=== PATIENT | male | born 1985 | race American Indian/Alaskan Native ===

== ENCOUNTER 2021-10-01 13:42 | Emergency (ER) | payer SELFPAY ==
[2021-10-01 13:45] VITALS: BP 158/93
--- NOTE | 2021-10-01 15:20 | Emergency Department Report ---
- General Chief Complaint: Fever Stated Complaint: COMMON COLD Time Seen by Provider: 10/01/21 14:41 Source: patient Mode of arrival: Ambulatory Limitations: No Limitations - History of Present Illness Initial Comments: 36-year-old male with a past medical history of leukemia, currently in remission x5 years presents to the ER today with URI symptoms. Patient states that the symptoms started about a week ago, he feels like his symptoms are getting little bit better but he still has the productive cough, chest pain with cough, sore throat with cough, slight rhinorrhea, nasal congestion and so he decided come in to get checked. States that he had subjective fever when the symptoms first started but this has since resolved. He has not gotten a COVID-19 test since his pain sick. He did not get the vaccine. He denies any known ill contacts or recent travel. He reports no GI or symptoms. He states that he takes a daily pill for his leukemia, he states that it suppose to keep him in remission but is not sure if its a chemo medication. He states that his been compliant with following up with his oncologist. MD Complaint: cough, rhinorrhea, nasal congestion -: week(s) - Related Data Previous Rx's Medication Instructions Recorded Last Taken Type Benzonatate [Tessalon Perles] 100 mg PO Q8HR #30 capsule 10/01/21 Unknown Rx Cetirizine HCl [Zyrtec 10mg tab] 10 mg PO DAILY #30 tablet 10/01/21 Unknown Rx ED Review of Systems ROS: Stated complaint: COMMON COLD Other details as noted in HPI Comment: All other systems reviewed and negative Constitutional: fever (initially when symptoms first started but has since resolved ) ENT: congestion, other (rhinorrhea ) Cardiovascular: chest pain (secondary to cough) Gastrointestinal: denies: abdominal pain, nausea, diarrhea, constipation, hematemesis, melena, hematochezia Genitourinary: denies: urgency, dysuria, frequency, hematuria, discharge, testicular pain, testicular mass Skin: denies: rash, lesions, change in color, change in hair/nails, pruritus Neurological: denies: headache, weakness, numbness, paresthesias, confusion, abnormal gait, vertigo Psychiatric: denies: anxiety, depression, auditory hallucinations, visual hallucinations, homicidal thoughts, suicidal thoughts Hematological/Lymphatic: denies: easy bleeding, easy bruising, swollen glands ED Past Medical Hx - Medications Home Medications: Home Medications Medication Instructions Recorded Confirmed Last Taken Type Benzonatate [Tessalon Perles] 100 mg PO Q8HR #30 capsule 10/01/21 Unknown Rx Cetirizine HCl [Zyrtec 10mg tab] 10 mg PO DAILY #30 tablet 10/01/21 Unknown Rx ED Physical Exam - General Limitations: No Limitations General appearance: alert, in no apparent distress - Head Head exam: Present: atraumatic, normocephalic, normal inspection - Eye Eye exam: Present: normal appearance, PERRL, EOMI Pupils: Present: normal accommodation - ENT ENT exam: Present: normal exam, mucous membranes moist, TM's normal bilaterally - Neck Neck exam: Present: normal inspection, full ROM. Absent: meningismus - Respiratory Respiratory exam: Present: normal lung sounds bilaterally. Absent: respiratory distress, wheezes, rales, rhonchi, stridor - Cardiovascular Cardiovascular Exam: Present: regular rate, normal rhythm, normal heart sounds - GI/Abdominal GI/Abdominal exam: Present: soft. Absent: guarding, rebound - Neurological Exam Neurological exam: Present: alert, oriented X3, CN II-XII intact, normal gait - Psychiatric Psychiatric exam: Present: normal affect, normal mood - Skin Skin exam: Present: intact ED Course Vital Signs 10/01/21 10/01/21 13:44 15:14 Temperature 98.0 F Pulse Rate 95 H Respiratory 16 Rate Blood Pressure 158/93 O2 Sat by Pulse 92 99 Oximetry ED Medical Decision Making - Radiology Data Radiology results: report reviewed Patient: JILLIAN GOEL MR#: [id number] : 1985 Acct:[id number] Age/Sex: 36 / M ADM Date: 10/01/21 Loc: ED Attending Dr: Ordering Physician: KRISTYN SEARS Date of Service: 10/01/21 Procedure(s): XR chest routine 2V Accession Number(s): [id number] cc: KRISTYN SEARS Fluoro Time In Minutes: CHEST 2 VIEWS INDICATION / CLINICAL INFORMATION: Cough for one week.. COMPARISON: None available. FINDINGS: SUPPORT DEVICES: None. HEART / MEDIASTINUM: The heart size and pulmonary vasculature are normal. LUNGS / PLEURA: There is minimal linear parenchymal opacity in the lingula. The lungs are otherwise clear. No pleural abnormality. No pneumothorax. ADDITIONAL FINDINGS: No significant additional findings. IMPRESSION: Minimal subsegmental atelectasis/scarring in the lingula. Signer Name: Cali Crews MD Signed: 10/01/2021 4:02 PM Workstation Name: [id number] Transcribed By: RT Dictated By: Cali Crews MD Electronically Authenticated By: Cali Crews MD Signed Date/Time: 10/01/211601 DD/ 00 TD/TT: - Medical Decision Making Chest x-ray shows nothing acute. Patient is not ill-appearing, he is not in any acute pain or respiratory distress. He is neurologically intact with a normal g ait. He appears well-hydrated. He is not toxic. He has no meningeal signs. Abdomen soft and nontender. No significant adventitious sounds on lung exam. Vital signs reviewed, he is oxygen was actually 99% on repeat was in the room with patient. His remaining vitals were stable. Additional work-up nor admission indicated at this time. Patient symptoms could be related to nonspecific viral illness, but I did recommend that he get a COVID-19 test as this could be a possibility to the cause of his symptoms. He will be given medication to help with symptoms. Patient expressed understanding and agree with plan. Patient was stable at time of discharge. Critical care attestation.: If time is entered above; I have spent that time in minutes in the direct care of this critically ill patient, excluding procedure time. ED Disposition Clinical Impression: URI with cough and congestion Disposition: HOME / SELF CARE / HOMELESS Is pt being admited?: No Does the pt Need Aspirin: No Condition: Stable Instructions: Upper Respiratory Infection, Adult, Dekh-br-Yoiq Additional Instructions: Your chest x-ray today was negative for anything acute. Symptoms likely related to a nonspecific viral illness. COVID-19 is a possibility and I do recommend that you get an outpatient COVID-19 test. Once your symptoms resolve completely also do recommend that you get a COVID-19 vaccine. In the meantime you can take the Tessalon Perles to help with any coughing, and take the Claritin or Zyrtec from [id number] to help with your URI symptoms. Continue to drink lots of fluids. Continue to follow-up with your oncologist and your PCP closely. Return to the ER if at any point your symptoms worsens. Prescriptions: Benzonatate [Tessalon Perles] 100 mg PO Q8HR #30 capsule Cetirizine HCl [Zyrtec 10mg tab] 10 mg PO DAILY #30 tablet Referrals: PRIMARY CARE, [Primary Care Provider] - 3-5 Days Forms: Work/School Release Form(ED) Time of Disposition: 16:41
--- NOTE | 2021-10-01 16:08 | XRay Report ---
CHEST 2 VIEWS INDICATION / CLINICAL INFORMATION: Cough for one week.. COMPARISON: None available. FINDINGS: SUPPORT DEVICES: None. HEART / MEDIASTINUM: The heart size and pulmonary vasculature are normal. LUNGS / PLEURA: There is minimal linear parenchymal opacity in the lingula. The lungs are otherwise c lear. No pleural abnormality. No pneumothorax. ADDITIONAL FINDINGS: No significant additional findings. IMPRESSION: Minimal subsegmental atelectasis/scarring in the lingula. Signer Name: Cali Crews MD Signed: 10/01/2021 4:02 PM Workstation Name: [id number]
== END 2021-10-01 16:48 | disposition home or self-care (01) ==
LOC: ED 13:42
DX: J06.9 Acute upper respiratory infection, unspecified (principal)
CPT/HCPCS: 71046; 99283

== ENCOUNTER 2021-10-05 12:31 | Emergency (ER) | payer SELFPAY ==
[2021-10-05 15:18] VITALS: BP 153/88
--- NOTE | 2021-10-05 15:33 | Emergency Department Report ---
Minor Respiratory - HPI Chief Complaint: Upper Respiratory Infection Stated Complaint: coughing Time Seen by Provider: 10/05/21 15:23 Duration: 5 Days Severity: mild Minor Respiratory: Yes Cough Other History: 36-year-old -[place] male who is nontoxic in no acute distress speaking in complete sentences presents to the emergency room for coughing. Patient was seen here on 10/01/2021 for URI symptoms. Patient is unvaccinated and he states he is waiting on his Covid test results. Patient reports that the Tessalon Perles and Zyrtec's he was prescribed not help. Patient denies any fever chills no nausea no vomiting. Patient has not tried any pslm-bzk-smisgnl medications. ED Review of Systems ROS: Stated complaint: coughing Other details as noted in HPI Comment: All other systems reviewed and negative ED Past Medical Hx - Past Medical History Previous Medical History?: No - Surgical History Past Surgical History?: No - Medications Home Medications: Home Medications Medication Instructions Recorded Confirmed Last Taken Type Benzonatate [Tessalon Perles] 100 mg PO Q8HR #30 capsule 10/01/21 Unknown Rx Cetirizine HCl [Zyrtec 10mg tab] 10 mg PO DAILY #30 tablet 10/01/21 Unknown Rx Minor Respiratory Exam - Exam General: Vital signs noted. No distress. Alert and acting appropriately. HEENT: Yes Moist Mucous Membranes, No Pharyngeal Erythema, No Pharyngeal Exudates, No Rhinorrhea, No Conjuctival Injection, No Frontal Tenderness, No Maxillary Tenderness Ear: Neither TM Bulge, Neither TM Erythema, Neither EAC Pain, Neither EAC Discharge Neck: Yes Supple, No Adenopathy Lungs: Yes Good Air Exchange, No Wheezes, No Ronchi, No Stridor, No Cough, No Labored Respirations, No Retractions, No Use of Accessory Muscles, No Other Abnormal Lung Sounds Heart: Yes Regular, No Murmur Abdomen: Yes Normal Bowel Sounds, No Tenderness, No Peritoneal Signs Skin: No Rash, No Edema Neurologic: Alert and oriented, no deficits. Musculoskeletal: Unremarkable. ED Course Vital Signs 10/05/21 15:14 Temperature 98.5 F Pulse Rate 86 Respiratory 16 Rate Blood Pressure 153/88 [Left] O2 Sat by Pulse 95 Oximetry ED Medical Decision Making - Medical Decision Making 36-year-old -[place] male who is nontoxic in no acute distress speaking in complete sentences presents to the emergency room for coughing. Patient was seen here on 10/01/2021 for URI symptoms. Patient is unvaccinated and he states he is waiting on his Covid test results. Patient reports that the Tessalon Perles and Zyrtec's he was prescribed not help. Patient denies any fever chills no nausea no vomiting. Patient has not tried any gtnj-lcv-lktsbeh medications. Patient has a stable lung exam not coughing throughout the whole visit. Is afebrile vital signs are stable no acute distress. Discussed with patient he can take rpgs-wbj-kvigktc Robitussin or Delsym for cough. Discussed with patient to follow-up in his Covid test and encouraged Covid vaccination. Critical care attestation.: If time is entered above; I have spent that time in minutes in the direct care of this critically ill patient, excluding procedure time. ED Disposition Clinical Impression: Suspected COVID-19 virus infection, Viral infection Disposition: HOME / SELF CARE / HOMELESS Is pt being admited?: No Does the pt Need Aspirin: No Condition: Stable Instructions: COVID-19 Frequently Asked Questions, Viral Respiratory Infection, Tzvw-Yn-Kmrx, COVID-19: How to Protect Yourself and Others - CDC, Prevent the Spread of COVID-19 if You Are Sick - CDC Additional Instructions: Your symptoms appear most consistent with a nonspecific viral syndrome. However, given this current pandemic, COVID-19 is in the differential of possibilities. Despite your previous negative COVID-19 test, I do recommend repeat outpatient Covid 19 testing. In the meantime, isolate/quarantine yourself and stay away from anyone who is elderly, immunocompromised or chronically ill. You can use ibuprofen every 6-8 hours and Tylenol every 4-8 hours, using the dosing on the back of the bottle, as needed for any fever or body aches. Return to the emergency department with any worsening of your symptoms, development of chest pain or shortness of breath, or with any acute distress. Referrals: your, Primary Care provider [Other] - 3-5 Days Your, primary care provider [Other] - 3-5 Days Forms: Work/School Release Form(ED) Time of Disposition: 15:39
== END 2021-10-05 16:13 | disposition home or self-care (01) ==
LOC: ED 12:31
DX: B34.9 Viral infection, unspecified (principal); Z20.822 Contact with and (suspected) exposure to COVID-19
CPT/HCPCS: 99282

== ENCOUNTER 2021-10-30 12:14 | Emergency (ER) | payer SELFPAY ==
[2021-10-30 12:44] VITALS: BP 187/108
--- NOTE | 2021-10-30 15:04 | Emergency Department Report ---
- General Chief Complaint: Chest Pain Stated Complaint: RIB AND BACK PAIN Source: patient Mode of arrival: Ambulatory Limitations: No Limitations - History of Present Illness Initial Comments: 36-year-old male presents to the ED with complaint of cough x2-week. Patient stated that he was tested positive for Covid 2 weeks ago and cough has never went away. Patient states the cough is causing rib and back pain. Patient denies taking any medication [id number]. Denies any shortness of breath ,chest pain ,or fever. Patient alert and oriented x4. No acute distress noted .no ill appearance noted. Patient has no known history. MD Complaint: cough Onset/Timin -: week(s) Quality: aching Improves With: nothing Worsens With: nothing Associated Symptoms: denies other symptoms Treatments Prior to Arrival: none - Related Data Previous Rx's Medication Instructions Recorded Last Taken Type Benzonatate [Tessalon Perles] 100 mg PO Q8HR #30 capsule 10/01/21 Unknown Rx Cetirizine HCl [Zyrtec 10mg tab] 10 mg PO DAILY #30 tablet 10/01/21 Unknown Rx Allergies Allergy/AdvReac Type Severity Reaction Status Date / Time No Known Allergies Allergy Verified 10/30/21 12:44 ED Review of Systems ROS: Stated complaint: RIB AND BACK PAIN Other details as noted in HPI Constitutional: denies: chills, fever Eyes: denies: eye pain, eye discharge, vision change ENT: denies: ear pain, throat pain Respiratory: cough. denies: shortness of breath, wheezing Cardiovascular: denies: chest pain, palpitations Endocrine: no symptoms reported Gastrointestinal: denies: abdominal pain, nausea, diarrhea Genitourinary: denies: urgency, dysuria Musculoskeletal: back pain. denies: joint swelling, arthralgia Skin: denies: rash, lesions Neurological: denies: headache, weakness, paresthesias Psychiatric: denies: anxiety, depression Hematological/Lymphatic: denies: easy bleeding, easy bruising ED Past Medical Hx - Medications Home Medications: Home Medications Medication Instructions Recorded Confirmed Last Taken Type Benzonatate [Tessalon Perles] 100 mg PO Q8HR #30 capsule 10/01/21 Unknown Rx Cetirizine HCl [Zyrtec 10mg tab] 10 mg PO DAILY #30 tablet 10/01/21 Unknown Rx ED Physical Exam - General Limitations: No Limitations General appearance: alert, in no apparent distress - Head Head exam: Present: atraumatic, normocephalic - Eye Eye exam: Present: normal appearance - ENT ENT exam: Present: mucous membranes moist - Neck Neck exam: Present: normal inspection - Respiratory Respiratory exam: Present: normal lung sounds bilaterally. Absent: respiratory distress - Cardiovascular Cardiovascular Exam: Present: regular rate, normal rhythm. Absent: systolic murmur, diastolic murmur, rubs, gallop - GI/Abdominal GI/Abdominal exam: Present: soft, normal bowel sounds - Rectal Rectal exam: Present: deferred - Extremities Exam Extremities exam: Present: normal inspection - Back Exam Back exam: Present: normal inspection - Neurological Exam Neurological exam: Present: alert, oriented X3 - Psychiatric Psychiatric exam: Present: normal affect, normal mood - Skin Skin exam: Present: warm, dry, intact, normal color. Absent: rash ED Course Vital Signs 10/30/21 12:42 Temperature 98.3 F Pulse Rate 78 Respiratory 14 Rate Blood Pressure 187/108 [Left] O2 Sat by Pulse 100 Oximetry ED Medical Decision Making - Medical Decision Making 36-year-old male presents to the ED with complaint of cough x2-week. Patient stated that he was tested positive for Covid 2 weeks ago and cough has never went away. Patient states the cough is causing rib and back pain. Patient denies taking any medication [id number]. Denies any shortness of breath ,chest pain ,or fever. Patient alert and oriented x4. No acute distress noted .no ill appearance noted. Patient is asymptomatic hypertension will not treat discussed discharge plan with patient. .he verbalized understanding recheck BP- recheck vitals 168/94 at tdischarge I have spoken with the patient and/or caregiver. I have explained the patient condition, diagnosis and treatment plan based on information available to me at this time. I have answered the patient and/caregiver questions and addressed any concerns. The patient and/or caregiver have has good an understanding of the patient diagnosed condition and treatment plan as can be expected at this point. The vital signs have been stable. The patient condition is stable and appropriate for discharge from the emergency department. The patient and caregiver has been given detailed instruction in a written format and expressed understanding of discharge instruction. The patient/or caregiver are aware that any significant change in condition or worsening of symptoms should prompt an immediate return to the this or the closest emergency department or call to 911 Critical care attestation.: If time is entered above; I have spent that time in minutes in the direct care of this critically ill patient, excluding procedure time. ED Disposition Clinical Impression: COVID-19 long hauler, Generalized body aches Disposition: HOME / SELF CARE / HOMELESS Is pt being admited?: No Does the pt Need Aspirin: No Condition: Stable Instructions: Ibuprofen tablets and capsules, Musculoskeletal Pain Additional Instructions: Follow-up with your primary care doctor as needed Make take rdlq-[id number] Tylenol as needed After the COVID some symptoms may be prolonged Return to ED for any worsening symptoms Referrals: PRIMARY CAREMD [Primary Care Provider] - 3-5 Days LU MITCHELL MD [Staff Physician] - 3-5 Days Forms: Work/School Release Form(ED) Time of Disposition: 15:40
--- NOTE | 2021-10-30 15:23 | XRay Report ---
CHEST 2 VIEWS INDICATION / CLINICAL INFORMATION: cough x 2 week after covid. COMPARISON: 10/01/2021 chest x-ray FINDINGS: SUPPORT DEVICES: None. HEART / MEDIASTINUM: No significant abnormality. LUNGS / PLEURA: No acute findings. Stable mild linear scarring in the left lower lung. ADDITIONAL FINDINGS: No significant additional findings. IMPRESSION: 1. No acute findings. Signer Name: Ricardo Hernandez MD Signed: 10/30/2021 3:18 PM Workstation Name: [email or web address]
== END 2021-10-30 15:54 | disposition home or self-care (01) ==
LOC: ED 12:14
DX: U09.9 Post COVID-19 condition, unspecified (principal); M79.18 Myalgia, other site
CPT/HCPCS: 71046; 99283